=== PATIENT | male | born 1975 | race African-American/Black ===

== ENCOUNTER 2019-04-21 20:05 | Inpatient (IN) ==
[2019-04-21] MEDS ORDERED: HYDROCODONE/HOMATROPINE SYRUP 5MG/1.5MG 5ML UDP PO STA (20:21)
[2019-04-21] MEDS ORDERED: LIDOCAINE 4% INH SOLN 4 ML BTL INH ONE (20:21)
[2019-04-21] MEDS ORDERED: SODIUM CHLORIDE 0.9% 1000ML 1,000 ML IV ONE (20:21)
[2019-04-21] MEDS ORDERED: ALBUT/IPRATROP 3MG/0.5MG NEB 3 ML VIAL NEB STA (20:21)
--- NOTE | 2019-04-21 20:24 | Emergency Department Note ---
ED Provider Note Name: GREGORIO LANGLEY Age: 44 Sex: M Arrives Via: Ambulance Informant: Patient ED Provider: Herbert Bolanos MD Chief Complaint: Shortness of breath Impression: Multifocal Pneumonia Shortness of breath Medical Decision Makin yr old male with 7 days of cough, shortness of breath and low grade fevers. 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 who admits he was tested several days ago for Covid-19 due to symptoms but has not heard results. Admits he has continued to interact with people and travel for his job. He is tachycardic, modestly febrile, with diffuse mild wheezing on exam. Patient in airborne isolation on arrival by nursing. CXR with bilateral patchy infiltrates. Labs unremarkable other than Dimer elevation. Dimer done due to tachy, sob, and traveling. Unfortunately due to him being in isolation we are unable to due CT on him at this time as we have single working CT and it would need to be shut down for 2 hours for cleaning after any patient with Covid concerns. As he has normal WBC, neg Flu, and Resp panel negative, I am concerned this is still a viral process. Regardless, Lactic acid and Blood cultures were obtained. He is not septic but fluids given and we will treat empirically with Rocephin/Azithro for CAP. Respiratory panel pending and Covid ordered given all his findings. Given all of this I do feel that hospitalization reasonable and discussed with Hospitalist who agrees. US doppler negative for dvt in legs, and after discussing with hospitalist will manage anticoagulation. Patient comfortable with plan. Of note, no steroids given as questionable benefit in patient without known COPD/Asthma and possibility increased risk in Covid - 19 patients. Triage/Nursing Notes reviewed by Me Differentials:Flu, Covid, Viral infection, Reactive airway disease, pneumonia, pneumothorax, COPD, CHF, infections, cardiac ischemia, pulmonary embolism, musculoskeletal, gastrointestinal, as well as other pathologies. amongst other pathologies. Vital Signs: reviewed and remarkable for Tachy, febrile, HTN Interventions: Saline lock, nss bolus, duoneb, lidocaine neb, hycodan po, azithro IV, rocephin IV, potassium 10meq IV Labs:Reviewed and remarkable for +dimer Imaging:X ray results are stated below per my interpretation: Chest: 1 view: Bilateral patchy infiltrates [facility] Radiologist interpretation reviewed by me: US bilateral legs doppler venous negative Cardiac/Tele Monitoring: Cardiac Monitoring: An Order was placed for continuous cardiac monitoring. The monitor shows a rate of 115 with a sinus tach rhythm. Consults:Dr Pj ventura hospitalist will admit for further management Plan: Disposition:Hospitalization. Condition: Good Blood pressure:Elevated - Referred to PCP History of Present Illness:44 / M arrives for evaluation of cough. Patient with 7 to 10 days of cough. Notes this associated with shortness of breath at times when coughing becomes severe. Also associated headache and abdominal pains from coughing. No measured fevers but has been having chills. Bilateral leg/calve cramping. Denies body aches, cp, syncope, vomiting, leg swelling, nor other symptoms. Nothing makes better nor worse. Using Robitussin DM without improvement. 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 Admits flu testing negative a few days ago, and Covid 19 testing pending. He is from [facility] and travels throughout in truck. ROS: See above HPI for pertinent positives & negatives. A total of 10 systems reviewed and were otherwise negative. 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 EYES: No scleral icterus, unremarkable pupils. ENT: Mucous membranes dry, no nasal congestion. NECK: No masses appreciated, nomeningismus, trachea is midline. RESPIRATORY: Persistent hacking cough. mild dyspnea. Mild diffuse wheeze throughout, no rhonchi. CARDIOVASCULAR: Tachy.No murmurs, rubs, gallops appreciated. GASTROINTESTINAL: Abdomen soft, non-tender, no peritonitis.Bowel sounds positive.No masses appreciated. BACK: No midline tenderness, no CVA tenderness EXTREMITIES: Normal motion all extremities, no cyanosis, no edema. NEUROLOGIC: Alert and oriented, no acute motor or sensory deficits, no focal weakness, cranial nerves grossly intact. SKIN: No rash, no jaundice, no diaphoresis. PSYCH: Appropriate GCS: 15 Herbert Bolanos MD Impression & Plan Multifocal pneumonia, SOB (shortness of breath) Past Med/Surg History Social History Feels Safe at Home: Yes Smoking Status: Current every day smoker Results & Data Vital Signs Vital Signs - 24 hr 04/21/19 20:41 04/21/19 20:50 04/21/19 21:36 Temperature 37.6 C H Temperature Source Oral Pulse Rate 112 H Pulse Rate [Apical] 104 H 122 H Pulse Rate from SpO2 Sensor Respiratory Rate 20 18 17 Respiratory Effort / Characteristics Non-Labored Spontaneous Non-Labored Spontaneous Non-Labored Spontaneous Respiratory Depth Normal Normal Blood Pressure 186/108 H Blood Pressure [Right Arm] 184/97 H Blood Pressure Mean 134 Blood Pressure Mean [Right Arm] 126 Pulse Oximetry 96 95 96 Oxygen Delivery Method Room Air Room Air Room Air Sepsis Recent Fever Within 48 Hours No Sepsis Action Taken by Nursing No Action Required 04/21/19 22:00 04/21/19 23:16 Temperature 37.2 C Temperature Source Oral Pulse Rate 118 H Pulse Rate [Apical] 108 H Pulse Rate from SpO2 Sensor 118 H Respiratory Rate 16 21 Respiratory Effort / Characteristics Non-Labored Spontaneous Respiratory Depth Normal Blood Pressure 149/99 H Blood Pressure [Right Arm] 142/110 H Blood Pressure Mean 111 Blood Pressure Mean [Right Arm] 120 Pulse Oximetry 93 95 Oxygen Delivery Method Room Air Room Air Sepsis Recent Fever Within 48 Hours Sepsis Action Taken by Nursing Laboratory Data Result diagrams: 04/21/19 20:12 04/21/19 20:12 Lab Results 04/21/19 04/21/19 04/21/19 Range/Units 20:12 20:12 20:12 WBC 7.85 (4.8-10.8) K/uL RBC 4.12 L (4.7-6.1) M/uL Hgb 12.7 L (14.0-18.0) g/dL Hct 36.1 L (42-52) % MCV 87.6 (80-100) fL MCH 30.8 (25-34) pg MCHC 35.2 (32-36) g/dL RDW Std Deviation 40.7 (36.4-46.3) fL RDW Coeff of Marissa 12.6 (11.5-14.5) % Plt Count 237 (130-400) K/uL MPV 11.0 H (7.4-10.4) fL Immature Gran % (Auto) 0.3 % Neut % (Auto) 74.9 % Lymph % (Auto) 13.5 % [place] % (Auto) 10.6 % Eos % (Auto) 0.4 % Baso % (Auto) 0.3 % Immature Gran # (Auto) 0.02 (0.00-0.02) K/uL Neut # (Auto) 5.89 (1.4-6.5) K/uL Lymph # (Auto) 1.06 L (1.2-3.4) K/uL [place] # (Auto) 0.83 H (0.11-0.59) K/uL Eos # (Auto) 0.03 (0-0.5) K/uL Baso # (Auto) 0.02 (0-0.2) K/uL D-Dimer 700 H* (0-500) ug/L FEU Sodium 136 (136-145) mmol/L Potassium 2.9 L (3.5-5.1) mmol/L Chloride 102 (98-107) mmol/L Carbon Dioxide 29 (21-32) mmol/L Anion Gap 4.0 (3-11) BUN 13 (7-18) mg/dl Creatinine 1.02 (0.6-1.4) mg/dl Est Cr Clr Drug Dosing 116.9 ml/min Est GFR ( Amer) 104.6 Est GFR (Non-Af Amer) 90.2 BUN/Creatinine Ratio 12.5 (10-20) Glucose 88 (70-99) mg/dl Lactate (0.4-2.0) mmol/L Calcium 9.3 (8.5-10.1) mg/dl Troponin I < 0.015 (0-0.045) ng/ml Adenovirus (PCR) (NotDetected) B. pertussis DNA (PCR) (NotDetected) B.parapertussis DNA PCR (NotDetected) C. pneumoniae DNA (PCR) (NotDetected) Coronavirus OC43 (PCR) (NotDetected) Coronavirus HKU1 (PCR) (NotDetected) Coronavirus 229E (PCR) (NotDetected) Coronavirus NL63 (PCR) (NotDetected) Human Metapneumovir PCR (NotDetected) Influenza Type A (PCR) (Neg) Influenza Type B (PCR) (Neg) M. pneumoniae (PCR) (NotDetected) Parainfluenza 1 (PCR) (NotDetected) Parainfluenza 2 (PCR) (NotDetected) Parainfluenza 3 (PCR) (NotDetected) Parainfluenza 4 (PCR) (NotDetected) RSV (PCR) (NotDetected) Entero/Rhino (PCR) (NotDetected) 04/21/19 04/21/19 04/21/19 Range/Units 20:23 21:34 22:17 WBC (4.8-10.8) K/uL RBC (4.7-6.1) M/uL Hgb (14.0-18.0) g/dL Hct (42-52) % MCV (80-100) fL MCH (25-34) pg MCHC (32-36) g/dL RDW Std Deviation (36.4-46.3) fL RDW Coeff of Marissa (11.5-14.5) % Plt Count (130-400) K/uL MPV (7.4-10.4) fL Immature Gran % (Auto) % Neut % (Auto) % Lymph % (Auto) % [place] % (Auto) % Eos % (Auto) % Baso % (Auto) % Immature Gran # (Auto) (0.00-0.02) K/uL Neut # (Auto) (1.4-6.5) K/uL Lymph # (Auto) (1.2-3.4) K/uL [place] # (Auto) (0.11-0.59) K/uL Eos # (Auto) (0-0.5) K/uL Baso # (Auto) (0-0.2) K/uL D-Dimer (0-500) ug/L FEU Sodium (136-145) mmol/L Potassium (3.5-5.1) mmol/L Chloride (98-107) mmol/L Carbon Dioxide (21-32) mmol/L Anion Gap (3-11) BUN (7-18) mg/dl Creatinine (0.6-1.4) mg/dl Est Cr Clr Drug Dosing ml/min Est GFR ( Amer) Est GFR (Non-Af Amer) BUN/Creatinine Ratio (10-20) Glucose (70-99) mg/dl Lactate 0.8 (0.4-2.0) mmol/L Calcium (8.5-10.1) mg/dl Troponin I (0-0.045) ng/ml Adenovirus (PCR) Not Detected (NotDetected) B. pertussis DNA (PCR) Not Detected (NotDetected) B.parapertussis DNA PCR Not Detected (NotDetected) C. pneumoniae DNA (PCR) Not Detected (NotDetected) Coronavirus OC43 (PCR) Not Detected (NotDetected) Coronavirus HKU1 (PCR) Not Detected (NotDetected) Coronavirus 229E (PCR) Not Detected (NotDetected) Coronavirus NL63 (PCR) Not Detected (NotDetected) Human Metapneumovir PCR Not Detected (NotDetected) Influenza Type A (PCR) Neg for Influ A Not Detected (Neg) Influenza Type B (PCR) Neg for Influ B Not Detected (Neg) M. pneumoniae (PCR) Not Detected (NotDetected) Parainfluenza 1 (PCR) Not Detected (NotDetected) Parainfluenza 2 (PCR) Not Detected (NotDetected) Parainfluenza 3 (PCR) Not Detected (NotDetected) Parainfluenza 4 (PCR) Not Detected (NotDetected) RSV (PCR) Not Detected (NotDetected) Entero/Rhino (PCR) Not Detected (NotDetected) Administered Medications Discontinued Medications Albuterol (Duoneb) 3 ml NEB NOW STA Stop: 04/21/19 20:22 Last Admin: 04/21/19 20:46 Dose: 3 ml Documented by: [id number] Hydrocodone Bit/Homatropine Methylb (Hycodan) 5 ml PO NOW STA Stop: 04/21/19 20:22 Last Admin: 04/21/19 21:31 Dose: 5 ml Documented by: [id number] Sodium Chloride (Nss 1000ml) 1,000 mls @ 999 mls/hr IV .Q1H1M ONE Stop: 04/21/19 21:21 Last Infusion: 04/21/19 21:29 Dose: 0 mls/hr Documented by: [id number] Admin: 04/21/19 20:27 Dose: 999 mls/hr Documented by: [id number] Ceftriaxone Sodium (Rocephin) 2,000 mg in 70 mls @ 140 mls/hr IV NOW STA Stop: 04/21/19 22:12 Last Infusion: 04/21/19 23:10 Dose: 0 mls/hr Documented by: [id number] Admin: 04/21/19 22:28 Dose: 140 mls/hr Documented by: [id number] Azithromycin 500 mg/ Dextrose 255 mls @ 127.5 mls/hr IV NOW STA Stop: 04/21/19 23:42 Last Admin: 04/21/19 23:14 Dose: 127.5 mls/hr Documented by: [id number] Lidocaine HCl (Xylocaine 4% Inh Soln) 2 ml INH NOW ONE Stop: 04/21/19 20:22 Last Admin: 04/21/19 20:46 Dose: 2 ml Documented by: [id number] Potassium Chloride (Klor-Con M10) 10 meq PO NOW STA Stop: 04/21/19 21:37 Last Admin: 04/21/19 22:27 Dose: 10 meq Documented by: [id number] Discharge Plan Visit Data Chief Complaint: Cough Stated Complaint: SOB, Cough, Travel to [place] ED Provider: Herbert Bolanos Discharge Problem: Multifocal pneumonia, SOB (shortness of breath) Forms Stand Alone Forms: My [facility] Prescriptions Prescriptions: No Action chlorthalidone 25 mg tablet 25 mg PO DAILY RF: 0 amlodipine 10 mg tablet 10 mg PO DAILY RF: 0
[2019-04-21 20:55] LABS: Basophils # (auto) 0.02 K/uL (0-0.2); Basophils % (auto) 0.3 %; Eosinophils # (auto) 0.03 K/uL (0-0.5); Eosinophils % (auto) 0.4 %; Hematocrit (blood only) 36.1 % (42-52); Hemoglobin 12.7 g/dL (14.0-18.0); Immature Granulocytes # (auto) 0.02 K/uL (0.00-0.02); Immature Granulocytes % (auto) 0.3 %; Lymphocytes # (auto) 1.06 K/uL (1.2-3.4); Lymphocytes % (auto) 13.5 %; Mean Corpuscular Hemoglobin 30.8 pg (25-34); Mean Corpuscular Hgb Conc 35.2 g/dL (32-36); Mean Corpuscular Volume 87.6 fL (80-100); Monocytes # (auto) 0.83 K/uL (0.11-0.59); Monocytes % (auto) 10.6 %; Neutrophils # (auto) 5.89 K/uL (1.4-6.5); Neutrophils % (auto) 74.9 %; Platelet Count 237 K/uL (130-400); RDW Coefficient of Variation 12.6 % (11.5-14.5); RDW Standard Deviation 40.7 fL (36.4-46.3); Red Blood Count 4.12 M/uL (4.7-6.1); White Blood Count 7.85 K/uL (4.8-10.8)
--- NOTE | 2019-04-21 21:01 | XRay Report ---
SINGLE VIEW CHEST CLINICAL HISTORY: Persistent cough. FINDINGS: An AP, portable, upright chest radiograph is obtained. No prior studies are available for c omparison at the time of dictation. The examination is degraded by portable technique and patient rot ation. The cardiomediastinal silhouette is unremarkable. Patchy airspace opacities are present at eric th lung bases. No large pleural effusion or pneumothorax is seen. The bony thorax is grossly intact. IMPRESSION: Patchy airspace opacities are present at both lung bases. Correlate clinically for eviden ce of an infectious/inflammatory pneumonitis.. ACT 112: Negative or not required by law. Electronically signed by: Moiz Hermosillo M.D. 04/21/2019 8:59 PM
[2019-04-21 21:07] LABS: D Dimer 700 ug/L FEU (0-500)
[2019-04-21 21:23] LABS: BUN Creatinine Ratio 12.5 (10-20); Blood Urea Nitrogen 13 mg/dl (7-18); Calcium 9.3 mg/dl (8.5-10.1); Carbon Dioxide 29 mmol/L (21-32); Chloride 102 mmol/L (98-107); Creatinine Clr Calc Pharmacy 116.9 ml/min; Est GFR (African American) 104.6; Est GFR (Non-African American) 90.2; Glucose 88 mg/dl (70-99); Potassium 2.9 mmol/L (3.5-5.1); Sodium 136 mmol/L (136-145)
[2019-04-21 21:25] LABS: Influenza A virus by PCR Neg for Influ A (Neg); Influenza B virus by PCR Neg for Influ B (Neg)
[2019-04-21 21:27] LABS: Troponin I < 0.015 ng/ml (0-0.045)
[2019-04-21] MEDS ORDERED: POTASSIUM CHLORIDE 10 MEQ TABCR PO STA (21:36)
[2019-04-21] MEDS ORDERED: cefTRIAXone SODIUM 2,000 MG/70 ML BAG IV STA (21:43)
[2019-04-21] MEDS ORDERED: AZITHROMYCIN 500 MG in DEXTROSE 5% 250 ML IV STA (21:43)
[2019-04-21 22:51] LABS: Adenovirus PCR Not Detected (NotDetected); Bordetella parapertussis PCR Not Detected (NotDetected); Bordetella pertussis PCR Not Detected (NotDetected); Chlamydia pneumoniae PCR Not Detected (NotDetected); Coronavirus 229E PCR Not Detected (NotDetected); Coronavirus HKU1 PCR Not Detected (NotDetected); Coronavirus NL63 PCR Not Detected (NotDetected); Coronavirus OC43PCR Not Detected (NotDetected); Human Metapneumovirus PCR Not Detected (NotDetected); Influenza A PCR Not Detected (NotDetected); Influenza B PCR Not Detected (NotDetected); Mycoplasma pneumoniae PCR Not Detected (NotDetected); Parainfluenza Virus 1 PCR Not Detected (NotDetected); Parainfluenza Virus 2 PCR Not Detected (NotDetected); Parainfluenza Virus 3 PCR Not Detected (NotDetected); Parainfluenza Virus 4 PCR Not Detected (NotDetected); Respiratory Syncytial VirusPCR Not Detected (NotDetected); Rhinovirus/Enterovirus PCR Not Detected (NotDetected)
[2019-04-21] MEDS ORDERED: ENOXAPARIN 1 MG/KG SQ SCH (23:45)
--- NOTE | 2019-04-21 23:51 | History & Physical Report ---
Date of Service April 21, 2019 Assessment & Plan (1) Multifocal pneumonia: Ceftriaxone 1 g IV daily Azithromycin 500 mg IV daily Guaifenesin extended release 600 mg p.o. twice daily Duonebs 4 times daily and every 2 hours as needed. Nasal cannula oxygen, titrate to keep pulse ox 94 to 95% Place in negative pressure, respiratory isolation until results of COVID 19 have returned. Avoiding steroids. Present on Admission?: Yes (2) Hypertension: Continue amlodipine. Hold chlorthalidone, as patient is hypokalemic with potassium 2.9, and appears mildly dehydrated. Placed on NSS + KCl 20 mEq at 100 mils per hour. Klor-Con 40 mEq p.o. x1. Check a magnesium level and LFTs upon repeat of BMP. Serial laboratories. Present on Admission?: Yes (3) Hypokalemia: See above Combination of being ill with decreased intake, and continuance of chlorthalidone. Present on Admission?: Yes History of Present Illness Chief Complaint: Patient presents to the emergency department with complaint of worsening shortness of breath over the past few days. 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 Work-up in the emergency department included a chest x-ray with bilateral patchy infiltrates suggestive of pneumonia, and elevated d-dimer. CT of chest was unable to be performed due to lack of availability of the CT scanner, but a venous Doppler was done bilaterally to rule out lower extremity DVT. The patient was kept in respiratory isolation while in the ED, and recommendation to be admitted to a negative pressure respiratory/room until testing results are available. Allergies Allergy/AdvReac Type Severity Reaction Status Date / Time No Known Allergies Allergy Verified 04/21/19 21:49 Home Medications Home Medications Medication Instructions Recorded Confirmed Type amlodipine 10 mg PO DAILY 04/21/19 04/21/19 History chlorthalidone 25 mg PO DAILY 04/21/19 04/21/19 History Past Med/Surg History Medical History (Updated 04/22/19 @ 04:28 by Gage Oliva MD) Hypertension Social History Preferred Language: Irish Communication Ability: Effective Adjunct Professor Of English Required: No Beliefs That Will Affect Care: None Current Living Situation: Spouse Feels Safe at Home: Yes Smoking Status: Current every day smoker Tobacco Type: cigarettes ; Cigarettes Per Day: 1 pack ; Hx Alcohol Use: No Hx Substance Use: No Review of Systems Review of Systems: The patient denies palpitations, lower extremity swelling, nausea, vomiting, diarrhea , constipation, abdominal pain, pelvic pain, blood in urine or stool, dysuria, urinary frequency or urgency, memory loss, loss of consciousness, rash, abnormal bruising or bleeding, imbalance, focal weakness, numbness or tingling in arms or legs, back or neck pain, or night sweats. The review of systems is otherwise negative other than for that already noted above, and at least 10 systems have been reviewed. Physical Exam Physical Exam: The patient is awake, alert and oriented 3, well developed and well nourished, normocephalic and atraumatic, mildly lethargic, lying in bed and in no acute distress. HEENT--PERRL, EOMI, mucous membranes and oropharynx dry. Neck--supple. No JVD. No bruits. Thyroid normal, trachea midline, no adenopathy. Heart--normal S1 and S2. No murmurs, rubs or gallops. Lungs--few coarse breath sounds bilaterally, more prominent at the bases bilate rally. No respiratory distress, no accessory muscle use. Abdomen--normal bowel sounds and soft. Nontender. Nondistended, no hernias or masses, no organomegaly. Extremities--no cyanosis or clubbing. No edema. Dermatologic--normal skin turgor, normal color, no abnormal lymph nodes, no rash. Neurologic--cranial nerves II through XII grossly intact. Rheumatologic--normal range of motion. Psychiatric--normal affect. Results & Data Vital Signs (Past 12 Hours) Vital Signs Temp Pulse Pulse Resp BP BP Pulse Ox 04/21/19 23:16 99.0 F 108 H 21 142/110 H 95 04/21/19 22:00 118 H 16 149/99 H 93 04/21/19 21:36 122 H 17 184/97 H 96 04/21/19 20:50 104 H 18 95 04/21/19 20:41 99.7 F H 112 H 20 186/108 H 96 Laboratory Results Laboratory Results WBC 7.85 K/uL (4.8-10.8) 04/21/19 20:12 RBC 4.12 M/uL (4.7-6.1) L 04/21/19 20:12 Hgb 12.7 g/dL (14.0-18.0) L 04/21/19 20:12 Hct 36.1 % (42-52) L 04/21/19 20:12 MCV 87.6 fL (80-100) 04/21/19 20:12 MCH 30.8 pg (25-34) 04/21/19 20:12 MCHC 35.2 g/dL (32-36) 04/21/19 20:12 RDW Std Deviation 40.7 fL (36.4-46.3) 04/21/19 20:12 RDW Coeff of Marissa 12.6 % (11.5-14.5) 04/21/19:12 Plt Count 237 K/uL (130-400) 04/21/19 20:12 MPV 11.0 fL (7.4-10.4) H 04/21/19 20:12 Immature Gran % (Auto) 0.3 % 04/21/19 20:12 Neut % (Auto) 74.9 % 04/21/19 20:12 Lymph % (Auto) 13.5 % 04/21/19 20:12 [place] % (Auto) 10.6 % 04/21/19 20:12 Eos % (Auto) 0.4 % 04/21/19 20:12 Baso % (Auto) 0.3 % 04/21/19 20:12 Immature Gran # (Auto) 0.02 K/uL (0.00-0.02) 04/21/19 20:12 Neut # (Auto) 5.89 K/uL (1.4-6.5) 04/21/19 20:12 Lymph # (Auto) 1.06 K/uL (1.2-3.4) L 04/21/19 20:12 [place] # (Auto) 0.83 K/uL (0.11-0.59) H 04/21/19 20:12 Eos # (Auto) 0.03 K/uL (0-0.5) 04/21/19 20:12 Baso # (Auto) 0.02 K/uL (0-0.2) 04/21/19 20:12 D-Dimer 700 ug/L FEU (0-500) H* 04/21/19 20:12 Sodium 136 mmol/L (136-145) 04/21/19 20:12 Potassium 2.9 mmol/L (3.5-5.1) L 04/21/19 20:12 Chloride 102 mmol/L (98-107) 04/21/19 20:12 Carbon Dioxide 29 mmol/L (21-32) 04/21/19 20:12 Anion Gap 4.0 (3-11) 04/21/19 20:12 BUN 13 mg/dl (7-18) 04/21/19 20:12 Creatinine 1.02 mg/dl (0.6-1.4) 04/21/19 20:12 Est Cr Clr Drug Dosing 116.9 ml/min 04/21/19 20:12 Est GFR ( Amer) 104.6 04/21/19 20:12 Est GFR (Non-Af Amer) 90.2 04/21/19 20:12 BUN/Creatinine Ratio 12.5 (10-20) 04/21/19 20:12 Glucose 88 mg/dl (70-99) 04/21/19 20:12 Lactate 0.8 mmol/L (0.4-2.0) 04/21/19 22:17 Calcium 9.3 mg/dl (8.5-10.1) 04/21/19 20:12 Troponin I < 0.015 ng/ml (0-0.045) 04/21/19 20:12 Adenovirus (PCR) Not Detected (NotDetected) 04/21/19 21:34 B. pertussis DNA (PCR) Not Detected (NotDetected) 04/21/19 21:34 B.parapertussis DNA PCR Not Detected (NotDetected) 04/21/19 21:34 C. pneumoniae DNA (PCR) Not Detected (NotDetected) 04/21/19 21:34 Coronavirus OC43 (PCR) Not Detected (NotDetected) 04/21/19 21:34 Coronavirus HKU1 (PCR) Not Detected (NotDetected) 04/21/19 21:34 Coronavirus 229E (PCR) Not Detected (NotDetected) 04/21/19 21:34 Coronavirus NL63 (PCR) Not Detected (NotDetected) 04/21/19 21:34 Human Metapneumovir PCR Not Detected (NotDetected) 04/21/19 21:34 Influenza Type A (PCR) Not Detected (NotDetected) 04/21/19 21:34 Influenza Type B (PCR) Not Detected (NotDetected) 04/21/19 21:34 M. pneumoniae (PCR) Not Detected (NotDetected) 04/21/19 21:34 Parainfluenza 1 (PCR) Not Detected (NotDetected) 04/21/19 21:34 Parainfluenza 2 (PCR) Not Detected (NotDetected) 04/21/19 21:34 Parainfluenza 3 (PCR) Not Detected (NotDetected) 04/21/19 21:34 Parainfluenza 4 (PCR) Not Detected (NotDetected) 04/21/19 21:34 RSV (PCR) Not Detected (NotDetected) 04/21/19 21:34 Entero/Rhino (PCR) Not Detected (NotDetected) 04/21/19 21:34 Diagnostic Findings [place] [phone] XRay Report Patient: GREGORIO LANGLEY Date: 04/21/19 MR#: [id number]: [id number] ADEN Acct ID:[id number]: Date: 1975[facility] Zip[facility] [place] [address] Age: 44Location: ED Sex: M Room/Bed: Att Phy:Diagnosis: SOB, Cough, Travel to [facility] Phy: PCP,NOService Date: 04/21/19 Fam Phy:Interpreting Phy: Moiz Hermosillo MD Admit Phy: Ordering Phy: Herbert Bolanos M.D. cc: ~ SINGLE VIEW CHEST CLINICAL HISTORY: Persistent cough. FINDINGS: An AP, portable, upright chest radiograph is obtained. No prior studies are available for comparison at the time of dictation. The examination is degraded by portable technique and patient rotation. The cardiomediastinal silhouette is unremarkable. Patchy airspace opacities are present at both lung bases. No large pleural effusion or pneumothorax is seen. The bony thorax is grossly intact. IMPRESSION: Patchy airspace opacities are present at both lung bases. Correlate clinically for evidence of an infectious/inflammatory pneumonitis.. ACT 112: Negative or not required by law. Electronically signed by: Moiz Hermosillo M.D. 04/21/2019 8:59 PM Dictated: 04/21/192056 Transcribed: 04/21/192056 [facility] Patient: GREGORIO LANGLEY (Male) : 79 Status: ER Date: 04/21/19 23:22 Room #: History: leg cramping Slices: 33 Priors: Tech: Charan Zoya @ [id number] Exams: US VENOUS BILATERAL LOWER EXTREMITIES Accession Numbers: [id number] Preliminary Findings Only See Final Report For Complete Findings US VENOUS BILATERAL LOWER EXTREMITIES: No evidence of deep venous thrombosis. Radiologist: Leon Lenz MD Study ready at 23:25 and initial results transmitted at 23:25 *This report constitutes a preliminary interpretation only. Non-acute findings felt to be unrelated to the clinical presentation may not be discussed in this report. The study will be interpreted and a final report will be generated by the local Radiologist the following shift. To reach the hospital radiology department call [phone]. If a discrepancy is found between the preliminary and final interpretations of this study, please notify us via our Client Portal at [email or web address] QA Exams.You can also fax this report with a description of the discrepancy, or include the final report, to our daytime fax number [phone].If faxing, please indicate the severity of discrepancy using one of the following categories: [ ] 1 - Agree/Informational [ ] 2 - Unlikely to Affect Management [ ] 3 - Possible Eventual Change of Management [ ] 4 - Probable Immediate Change of Management For all other patient related information, please fax us at [phone]. [id number] Code Status & VTE Plan Code Status Full code VTE Prophylaxis Plan VTE Prophylaxis will be ordered: Yes PG Care Time/CCT Total # of Minutes Spent Total Time Spent with Patient: Total time spent is greater than 50% in coordination of care (as documented) at patient's floor/unit and/or counseling patient: Coding Level of Care Code 79386 Initial Inpt Care Lvl 3 Diagnoses Multifocal pneumonia J18.9 Hypertension I10 Hypokalemia E87.6
[2019-04-22] MEDS ORDERED: ENOXAPARIN INJ 120 MG/0.8 ML SYR SQ STA (00:30)
[2019-04-22] MEDS ORDERED: ENOXAPARIN INJ 40 MG/0.4 ML SYR ONE (01:08)
[2019-04-22] MEDS ORDERED: ENOXAPARIN 100 MG/1ML SYR ONE (01:08)
[2019-04-22] MEDS ORDERED: MAGNESIUM HYDROXIDE SUSP 30 ML UDC PO PRN (02:39)
[2019-04-22] MEDS ORDERED: ALUMINUM/MAGNESIUM SUSP 30 ML UDC PO PRN (02:39)
[2019-04-22] MEDS ORDERED: ONDANSETRON INJ 2 MG/ML 2 ML VIAL IV PRN (02:39)
[2019-04-22] MEDS ORDERED: ACETAMINOPHEN 325 MG TAB PO PRN (02:39)
[2019-04-22] MEDS ORDERED: POTASSIUM CHLORIDE 20 MEQ TABCR PO STA (04:16)
[2019-04-22] MEDS ORDERED: dilTIAZem HCl 5 MG/ML 5 ML VIAL IV PRN (04:17)
[2019-04-22] MEDS ORDERED: NSS + 20MEQ KCL 20 MEQ/1,000 ML BAG IV SCH (04:30)
[2019-04-22 06:53] LABS: INR 1.1 (0.9-1.1)
--- NOTE | 2019-04-22 06:58 | Ultrasound Report ---
US venous doppler LE BI HISTORY: Pain. Edema. bilateral leg cramping, elevated dimer, travel COMPARISON STUDY: None. FINDINGS: There is normal compressibility, flow, and augmentation within the bilateral lower extremit y deep venous systems. IMPRESSION: No DVT within the right or left lower extremity. ACT 112: Negative or not required by law. The above report was generated using voice recognition software. It may contain grammatical, syntax or spelling errors. Electronically signed by: Gerry Terrazas M.D. 04/22/2019 6:57 AM
[2019-04-22] MEDS: ALBUT/IPRATROP 3MG/0.5MG NEB 3 ML VIAL NEB SCH ×2 (07:21→11:48)
[2019-04-22] MEDS ORDERED: CHLORTHALIDONE 25 MG TAB PO SCH (09:00)
[2019-04-22] MEDS ORDERED: guaiFENesin 600 MG TABCR PO SCH (09:00)
[2019-04-22] MEDS ORDERED: AMLODIPINE BESYLATE 5 MG TAB PO SCH (09:00)
[2019-04-22 09:40] LABS: Basophils # (auto) 0.01 K/uL (0-0.2); Basophils % (auto) 0.2 %; Eosinophils # (auto) 0.02 K/uL (0-0.5); Eosinophils % (auto) 0.4 %; Hematocrit (blood only) 38.9 % (42-52); Hemoglobin 13.6 g/dL (14.0-18.0); Immature Granulocytes # (auto) 0.01 K/uL (0.00-0.02); Immature Granulocytes % (auto) 0.2 %; Lymphocytes # (auto) 1.06 K/uL (1.2-3.4); Lymphocytes % (auto) 21.9 %; Mean Corpuscular Hemoglobin 30.9 pg (25-34); Mean Corpuscular Volume 88.4 fL (80-100); Mean Platelet Volume 10.2 fL (7.4-10.4); Monocytes # (auto) 0.88 K/uL (0.11-0.59); Monocytes % (auto) 18.2 %; Neutrophils # (auto) 2.86 K/uL (1.4-6.5); Neutrophils % (auto) 59.1 %; Platelet Count 224 K/uL (130-400); RDW Coefficient of Variation 12.8 % (11.5-14.5); RDW Standard Deviation 41.2 fL (36.4-46.3); White Blood Count 4.84 K/uL (4.8-10.8)
[2019-04-22 10:21] LABS: Albumin Globulin Ratio 0.7 (0.9-2); Albumin Level 3.2 gm/dl (3.4-5.0); BUN Creatinine Ratio 8.7 (10-20); Bilirubin,Total 0.4 mg/dl (0.2-1); Calcium 9.3 mg/dl (8.5-10.1); Creatinine Clr Calc Pharmacy 144.3 ml/min; Est GFR (African American) 127.7; Est GFR (Non-African American) 110.2; Globulin 4.7 gm/dl (2.5-4.0); Potassium 2.9 mmol/L (3.5-5.1); Total Protein 7.9 gm/dl (6.4-8.2)
[2019-04-22] MEDS ORDERED: ALBUTEROL 0.083% NEBU SOLN 3 ML VIAL NEB PRN (11:52)
[2019-04-22] MEDS ORDERED: ENOXAPARIN INJ 120 MG/0.8 ML SYR SQ SCH (12:00)
--- NOTE | 2019-04-22 12:26 | Discharge Summary ---
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 Work-up in the emergency department included a chest x-ray with bilateral patchy infiltrates suggestive of pneumonia, and elevated d-dimer. CT of chest was unable to be performed due to lack of availability of the CT scanner, but a venous Doppler was done bilaterally to rule out lower extremity DVT. The patient was kept in respiratory isolation while in the ED, and recommendation to be admitted to a negative pressure respiratory/room until testing results are available. Principal Diagnosis Bilateral pneumonia Discharge Exam Constitutional WD/WN, vitals as above Eyes PERRL, conjunctivae normal, anicteric sclerae ENMT external ear and nose normal, oropharynx normal Neck trachea midline, no thyromegaly Respiratory normal respiratory effort and + cough Auscultation: lungs clear to auscultation bilaterally; no rhonchi and no wheezes Cardiovascular Rate/Rhythm: regular rhythm and + tachycardic Heart Sounds: normal S1 and normal S2; no murmur Extremities: normal capillary refill; no calf tenderness and no pedal edema Gastrointestinal (Abdomen) normal bowel sounds, soft, nontender, no hepatosplenomegaly Musculoskeletal no cyanosis or clubbing, extremities motor strength 5/5 Skin no rashes, warm and dry Neurologic patellar DTR's 2+ bilat, sensation intact and PERRL, EOMI, accommodation nl, no face palsy, no dysarthria Psychiatric A+Ox3, euthymic affect Lymphatic no cervical or axillary lymphadenopathy Discharge Data Allergies Allergy/AdvReac Type Severity Reaction Status Date / Time No Known Allergies Allergy Verified 04/21/19 21:49 Consultations 04/21/19 21:43 ED Decision to Admit Stat 04/22/19 02:39 Consult Case Management - Discharge Planning Routine Ordered Studies 04/21/19 21:54 US venous doppler [facility] Urgent Hospital Course (1) Multifocal pneumonia: evidence of infiltrates bilaterally on CXR fever, t max was 38.1, productive cough with white sputum feeling a lot better after IV fluids and dose of Rocephin 2gm and Zithromax 500mg IV will d/c home on Cefdinir 300mg BID and Zithromax 250mg daily encouraged to stay well hydrated, well nourished follow up with his PCP in one week of note, his Flu PCR was negative, biofire test negative for other viral infections COVID 19 sent out, instructed patient to remain in isolation for 14 days, provided with mask to wear on way home will contact with results once back differential for his dyspnea included PE, specifically once his D dimer returned elevated at 700 however, dopplers were negative for DVT bilaterally he has an alternative diagnosis of pneumonia that is more likely than the PE (especially with negative doppler) no further anticoagulation planned D dimer likely elevated due to infection (2) Hypertension: Continue amlodipine. Hold chlorthalidone, as patient is hypokalemic with potassium 2.9, and appears mildly dehydrated. Placed on NSS + KCl 20 mEq at 100 mils per hour. Klor-Con 40 mEq p.o. x1. K is still 2.9, will continue to hold Chlorthalidone on discharge (3) Hypokalemia: See above Combination of being ill with decreased intake, and continuance of chlorthalidone instructed patient to stop Chlorthalidone for the next week prescribed potassium 20mEq daily for 7 days Total Time Total Time Spent Total Time Spent (In Minutes): 34 minutes Total Time Includes: Examination of the Patient, Discharge Planning, Medication Reconciliation and Communication With Other Providers (Infection control) Discharge Plan Discharge Items Patient Disposition: Home - Self-Care Reason For Visit: BILATERAL PNEUMONIA Discharge Diagnosis: Bilateral pneumonia Condition on Discharge: Good Goals: get rest, stay well hydrated and well nourished complete course of antibiotics Activity: Per Instructions section Lifting: None Bathing: No limitations Sexual Activity: When tolerated Exercise/Sports: Gradually increase as tolerated Driving/Machine Use: Resume 3 days after discharge Weightbearing: Full weightbearing Non-emergency contact: Primary Care Provider Call non-emergency contact if: you have any medication questions, your symptoms worsen and you have a fever Follow-up/Referrals: PCP,NO [Primary Care Provider] - Diet: Regular Addtl Attending Provider Instructions: Medications: - CEFDINIR: 300mg twice a day for 5 more days - AZITHROMYCIN: 250mg daily for 4 more days - POTASSIUM: 20mEq daily for 7 days due to some low potassium CHLORTHALIDONE: hold for next week, can resume when you are feeling better Bilateral pneumonia presented with fever, chills, fast heart rate, shortness of breath your WBC is normal, not requiring oxygen, breathing better you were treated with IV antibiotics on admission, need to start on oral antibiotics can start these tomorrow morning, will give you paper scripts to take home please get plenty of rest, stay well hydrated, eat what you can There was some discussion of possible blood clots in lungs however, your venous dopplers were negative for DVT (clot) also, you have another clear reason for shortness of breath which is pneumonia Possible COVID 19 infection this is strictly under investigation, you DO NOT have a confirmed case you need to wear a mask on the ride home, would stay in the car once home you need to quarantine yourself for 14 days cannot return to work for two weeks, will write an excuse testing was sent, we will contact you with results of note, you were negative for flu and negative for other viral illnesses Pending Studies at Discharge: Yes Studies:: COVID 19 Stand-Alone Forms: [facility], Work/School Release (Inpt), Smoking Cessation Medications and DC Order Prescriptions: New potassium chloride [Klor-Con M20] 20 mEq Tablet,Er Particles/Crystals 20 meq PO DAILY 7 Days Qty: 7 RF: 0 azithromycin 250 mg tablet 250 mg PO DAILY 4 Days Qty: 4 RF: 0 cefdinir 300 mg capsule 300 mg PO BID 5 Days Qty: 10 RF: 0 Continued amlodipine 10 mg tablet 10 mg PO DAILY RF: 0 Discontinued chlorthalidone 25 mg tablet 25 mg PO DAILY RF: 0 Discharge Orders: Discharge Order (Routine); Ordered 04/22/19 Ordered By: Solitario Almeida Admission Data Admit Date/Time: 04/21/19 23:50 Attending Provider: Solitario Almeida Admit Provider: Gage Oliva Primary Care Provider: PCP,NO Other Providers: Gage Oliva Coding Level of Care Code D/C Day Management >30 mins Diagnoses Multifocal pneumonia J18.9 Hypertension I10 Hypokalemia E87.6
[2019-04-22] MEDS ORDERED: POTASSIUM CHLORIDE 20 MEQ TABCR PO SCH (14:00)
[2019-04-22] MEDS ORDERED: cefTRIAXone SODIUM 2,000 MG in DEXTROSE 5% 50 ML IV SCH (22:00)
[2019-04-22] MEDS ORDERED: AZITHROMYCIN 500 MG in DEXTROSE 5% 250 ML IV SCH (23:00)
== END 2019-04-22 12:52 | disposition home or self-care (01) | DRG 195 ==
LOC: ED 20:05 → 4W 04-22 → SUATTDRO 04-22 → 4W 04-22 01:50